=== PATIENT | female | born 1990 | race Caucasian/White ===

== ENCOUNTER 2016-09-12 19:43 | Outpatient (CLI) | payer MEDICAID ==
[~2016-09-12] VITALS: Ht 170.2 cm; Wt 78.2 kg
[2016-09-12] MEDS ORDERED: PREN1TAB27 PO (19:50)
== END 2016-09-12 20:55 | disposition home or self-care (01) ==
LOC: LDOP 19:43
PROVIDERS: ATTEND Obstetrics & Gynecology
DX: O26.893 Other specified pregnancy related conditions, third trimester (principal); R10.9 Unspecified abdominal pain; O62.9 Abnormality of forces of labor, unspecified; Z3A.34 34 weeks gestation of pregnancy
CPT/HCPCS: 59025; 81001; 87086; 99201; G0463

== ENCOUNTER → 2016-09-13 | Outpatient (CLI) | payer MEDICAID ==
[~2016-09-13] VITALS: Ht 167.6 cm; Wt 78.1 kg
[~2016-09-13] MED LIST: PREN1TAB27 PO
[2016-09-13 11:26] VITALS: BP 117/67
== END | disposition home or self-care (01) ==
LOC: LDOP 10:41
PROVIDERS: ATTEND Obstetrics & Gynecology
DX: O26.893 Other specified pregnancy related conditions, third trimester (principal); R10.9 Unspecified abdominal pain; O62.9 Abnormality of forces of labor, unspecified; Z3A.34 34 weeks gestation of pregnancy
CPT/HCPCS: 59025; 99211; G0463

== ENCOUNTER 2016-10-09 11:32 | Inpatient (IN) | payer MEDICAID ==
[~2016-10-09] VITALS: Ht 167.6 cm; Wt 78.4 kg
[2016-10-09] MEDS ORDERED: ONDANSETRON 2MG/ML, 2ML ONE ×2 (11:41→19:31)
[2016-10-09] MEDS ORDERED: LACTATED RINGERS 1,000 ML IVBOLUS ONE ×2 (12:00→14:30)
[2016-10-09] MEDS: PLEASE ENTER HEIGHT AND WEIGHT MC SCH ×2 (12:00→20:00)
[2016-10-09] MEDS ORDERED: ONDANSETRON 2MG/ML, 2ML IVPush ONE (12:00)
[2016-10-09 12:14] VITALS: BP 115/70
[2016-10-09] MEDS: LACTATED RINGERS 1,000 ML IV SCH ×4 (12:56→22:02)
[2016-10-09] MEDS ORDERED: OXYTOCIN 30U/ 0.9% NaCL 500ML 500 ML IV SCH (14:10)
[2016-10-09] MEDS ORDERED: METOCLOPRAMIDE 5 MG/ML, 2ML IV ONE (14:30)
[2016-10-09] MEDS ORDERED: SODIUM CITRATE/CITRIC ACID 30 ML UDC PO ONE (14:30)
[2016-10-09 15:15] LABS: DIFF TOTAL CELLS COUNTED 100 CELL DIFF
[2016-10-09 15:16] LABS: VERIFY COUNTS? YES
[2016-10-09] MEDS ORDERED: OXYTOCIN 30U/ 0.9% NaCL 500ML 500 ML ONE (16:34)
[2016-10-09] MEDS ORDERED: NEWBORN KIT ONE (16:34)
[2016-10-09] MEDS ORDERED: LACTATED RINGERS 1,000 ML IV SCH (18:00)
[2016-10-09] MEDS ORDERED: METOCLOPRAMIDE 5 MG/ML, 2ML ONE (18:57)
[2016-10-09] MEDS ORDERED: SODIUM CITRATE/CITRIC ACID 30 ML UDC ONE (18:57)
[2016-10-09] MEDS: OXYTOCIN 30U/ 0.9% NaCL 500ML 500 ML IV SCH (18:59)
[2016-10-09] MEDS ORDERED: CARBOPROST TROMETHAMINE 250 MCG/ML, 1ML IM PRN (19:00)
[2016-10-09] MEDS ORDERED: MISOPROSTOL 200 MCG TABLET PR PRN (19:00)
[2016-10-09] MEDS ORDERED: ONDANSETRON 2MG/ML, 2ML IV PRN (19:00)
[2016-10-09] MEDS ORDERED: CALCIUM CARBONATE 500 MG TAB.CHEW PO PRN (19:00)
[2016-10-09] MEDS ORDERED: METHYLERGONOVINE 0.2 MG/ML IM PRN (19:00)
[2016-10-09] MEDS ORDERED: SIMETHICONE 80 MG CHEW TAB PO PRN (19:00)
[2016-10-09] MEDS ORDERED: OXYcodone/APAP 5/325MG TABLET PO PRN (19:00)
[2016-10-09] MEDS ORDERED: OXYTOCIN 10 UNITS/ML, 1ML ONE (19:31)
[2016-10-09] MEDS ORDERED: CEFAZOLIN 1,000 MG ONE (19:31)
[2016-10-09] MEDS ORDERED: FENTANYL PF 100 MCG/2ML ONE ×2 (19:31→19:32)
[2016-10-09] MEDS ORDERED: HYDROmorphone 2 MG/ML, 1ML ONE ×2 (19:32→20:09)
[2016-10-09] MEDS: OXYcodone/APAP 5/325MG TABLET PO PRN (22:43)
[2016-10-09] MEDS ORDERED: OXYcodone/APAP 5/325MG TABLET ONE (22:43)
[2016-10-09 23:15] VITALS: BP 104/51
[2016-10-10] MEDS ORDERED: MORPHINE SULFATE 4 MG/ML, 1ML IVPush PRN (00:15)
[2016-10-10] MEDS: OXYcodone/APAP 5/325MG TABLET PO PRN ×5 (02:39→19:20)
[2016-10-10] MEDS: LACTATED RINGERS 1,000 ML IV SCH ×5 (02:59→18:59)
[2016-10-10 04:15] VITALS: BP 106/53
[2016-10-10] MEDS: OXYTOCIN 30U/ 0.9% NaCL 500ML 500 ML IV SCH ×2 (04:59→14:59)
[2016-10-10] MEDS: DOCUSATE 100 MG CAPSULE PO PRN (06:38)
[2016-10-10] MEDS: PRENATAL VIT/IRON/FA 1 EACH TABLET PO SCH (08:35)
[2016-10-10 09:00] VITALS: BP 101/59
[2016-10-10 12:00] VITALS: BP 102/60
[2016-10-10] MEDS: IBUPROFEN 600 MG TABLET PO PRN (15:01)
[2016-10-10 16:00] VITALS: BP 104/60
[2016-10-10 20:45] VITALS: BP 97/68
[2016-10-11] MEDS: LACTATED RINGERS 1,000 ML IV SCH ×2 (00:59→02:59)
[2016-10-11] MEDS: OXYTOCIN 30U/ 0.9% NaCL 500ML 500 ML IV SCH (00:59)
[2016-10-11] MEDS: IBUPROFEN 600 MG TABLET PO PRN ×2 (02:23→11:11)
[2016-10-11] MEDS: OXYcodone/APAP 5/325MG TABLET PO PRN ×3 (02:23→11:11)
[2016-10-11] MEDS: DOCUSATE 100 MG CAPSULE PO PRN (02:23)
[2016-10-11 08:43] VITALS: BP 95/53
[2016-10-11] MEDS: PRENATAL VIT/IRON/FA 1 EACH TABLET PO SCH (09:07)
[2016-10-11] MEDS ORDERED: IBUP800T PO (11:03)
[2016-10-11] MEDS ORDERED: OXYC-302 PO (11:03)
[2016-10-11] MEDS ORDERED: DOCU-30 PO (11:03)
== END 2016-10-11 11:40 | disposition home or self-care (01) | DRG 766 ==
LOC: LDOP 11:32 → LDIP 11:39 → OBSVTOIN 14:02 → 2NW 22:55
PROVIDERS: ADMIT Obstetrics & Gynecology; ATTEND Obstetrics & Gynecology
PROC: 10D00Z1 Extraction of Products of Conception, Low, Open Approach (ICD-10-PCS; principal; 2016-10-09)
PROC: 0UB60ZZ Excision of Left Fallopian Tube, Open Approach (ICD-10-PCS; 2016-10-09)
DX: O34.211 Maternal care for low transverse scar from previous cesarean delivery (principal); Z37.0 Single live birth; O99.89 Other specified diseases and conditions complicating pregnancy, childbirth and the puerperium; N83.8 Other noninflammatory disorders of ovary, fallopian tube and broad ligament; O69.81X0 Labor and delivery complicated by cord around neck, without compression, not applicable or unspecified; Z3A.37 37 weeks gestation of pregnancy; O90.81 Anemia of the puerperium; D64.9 Anemia, unspecified
CPT/HCPCS: 36415; 85025; 86850; 86900; 88305; G0378; J0690; J1170; J2405; J3010; J2590; J2765; J7120